=== PATIENT | female | born 1940 | race Caucasian/White ===

== ENCOUNTER 2016-10-26 19:41 | Inpatient (IN) | payer MEDICARE, OTHER ==
[~2016-10-26] VITALS: Ht 162.6 cm; Wt 88.7 kg
[2016-10-26] MEDS ORDERED: SODIUM CHLORIDE 0.9% 1,000 ML ONE (21:05)
[2016-10-26] MEDS ORDERED: CEFTRIAXONE 1 GM VIAL ONE (23:57)
[2016-10-26] MEDS ORDERED: SODIUM CHLORIDE 0.9% 100 ML IV ONE (23:57)
[2016-10-27] VITALS (8 sets, daily range): BP systolic 91–142; RESP 16–18; TEMP 97.9–98.5; Ht 162.6 cm; Wt 88.7 kg
[2016-10-27] MEDS ORDERED: ONDANSETRON 4 MG VIAL IV PUSH PRN (00:10)
[2016-10-27] MEDS ORDERED: DEXTROSE 50% SYRINGE 50 ML IV PRN (00:10)
[2016-10-27] MEDS ORDERED: GLUCAGON 1 MG VIAL IM PRN (00:10)
[2016-10-27] MEDS ORDERED: SALINE FLUSH 10 ML FLUSH PRN (08:35)
[2016-10-27] MEDS: CEFTRIAXONE 1 GM in SODIUM CHLORIDE 0.9% 50 ML IV SCH (08:59)
[2016-10-27] MEDS: SODIUM CHLORIDE 0.9% FLUSH BAG 500 ML IV SCH (09:00)
[2016-10-27] MEDS: SALINE FLUSH 10 ML FLUSH SCH ×2 (09:01→20:30)
[2016-10-27] MEDS: FAMOTIDINE 20 MG INJ IV SCH ×2 (09:03→20:30)
[2016-10-27] MEDS: ACETAMINOPHEN 325 MG TAB PO PRN (09:25)
[2016-10-27] MEDS ORDERED: FAMOTIDINE 20 MG INJ IV SCH (11:05)
[2016-10-27] MEDS: SODIUM CHLOR 0.9% W/KCL 20MEQ 1,000 ML IV SCH ×2 (13:04→21:14)
[2016-10-27] MEDS: LEVEMIR INSULIN SUBQ SCH ×2 (13:22→20:31)
[2016-10-27] MEDS: ENOXAPARIN 30 MG/0.3 ML SYR SUBQ SCH (13:24)
[2016-10-28 04:22] VITALS: BP_SYST 131; RESP 18; TEMP 98.3
[2016-10-28] MEDS: SODIUM CHLORIDE 0.9% FLUSH BAG 500 ML IV SCH (05:51)
[2016-10-28] MEDS: SODIUM CHLOR 0.9% W/KCL 20MEQ 1,000 ML IV SCH ×2 (06:14→18:22)
[2016-10-28 07:16] VITALS: BP_SYST 116; RESP 20; TEMP 98.2
[2016-10-28] MEDS: SALINE FLUSH 10 ML FLUSH SCH ×2 (08:00→20:00)
[2016-10-28] MEDS: CEFTRIAXONE 1 GM in SODIUM CHLORIDE 0.9% 50 ML IV SCH (09:50)
[2016-10-28] MEDS: ENOXAPARIN 30 MG/0.3 ML SYR SUBQ SCH (09:51)
[2016-10-28] MEDS: CLOPIDOGREL 75 MG TAB PO SCH (09:51)
[2016-10-28] MEDS: CHOLECALCIFEROL 1,000 UNITS TAB PO SCH (09:51)
[2016-10-28] MEDS: ALPRAZOLAM 0.25 MG TAB PO SCH ×2 (09:51→21:52)
[2016-10-28] MEDS: SERTRALINE 25 MG TAB PO SCH (09:54)
[2016-10-28] MEDS: ACETAMINOPHEN 325 MG TAB PO PRN (10:01)
[2016-10-28 11:07] VITALS: BP_SYST 124; RESP 16; TEMP 98.8
[2016-10-28 14:50] VITALS: BP_SYST 119; RESP 16; TEMP 98.5
[2016-10-28 19:16] VITALS: BP_SYST 130; RESP 18; TEMP 98.6
[2016-10-28] MEDS: FAMOTIDINE 20 MG TAB PO SCH (21:51)
[2016-10-28 22:30] VITALS: BP_SYST 141; RESP 18; TEMP 98.4
[2016-10-29 04:14] VITALS: BP_SYST 116; RESP 18; TEMP 98.5
[2016-10-29] MEDS: SODIUM CHLORIDE 0.9% FLUSH BAG 500 ML IV SCH (06:00)
[2016-10-29] MEDS: SODIUM CHLOR 0.9% W/KCL 20MEQ 1,000 ML IV SCH ×2 (06:43→21:09)
[2016-10-29] MEDS: SALINE FLUSH 10 ML FLUSH SCH ×2 (08:00→20:00)
[2016-10-29 08:10] VITALS: BP_SYST 132; RESP 18; TEMP 98.5
[2016-10-29] MEDS ORDERED: LOPERAMIDE 2 MG CAPSULE PO PRN (08:50)
[2016-10-29] MEDS ORDERED: ERGOCALCIFEROL 50,000 UNITS (1.25 MG) CAP PO SCH (09:00)
[2016-10-29] MEDS: CEFTRIAXONE 1 GM in SODIUM CHLORIDE 0.9% 50 ML IV SCH (10:07)
[2016-10-29] MEDS: ENOXAPARIN 30 MG/0.3 ML SYR SUBQ SCH (10:07)
[2016-10-29] MEDS: LEVEMIR INSULIN SUBQ SCH (10:08)
[2016-10-29] MEDS: CLOPIDOGREL 75 MG TAB PO SCH (10:13)
[2016-10-29] MEDS: CHOLECALCIFEROL 1,000 UNITS TAB PO SCH (10:13)
[2016-10-29] MEDS: SERTRALINE 25 MG TAB PO SCH (10:13)
[2016-10-29] MEDS: ALPRAZOLAM 0.25 MG TAB PO SCH ×2 (10:17→21:05)
[2016-10-29 10:42] VITALS: BP_SYST 129; RESP 18; TEMP 98.2
[2016-10-29 16:11] VITALS: BP_SYST 126; RESP 18; TEMP 98.4
[2016-10-29 19:12] VITALS: BP_SYST 131; RESP 18; TEMP 98.5
[2016-10-29] MEDS: FAMOTIDINE 20 MG TAB PO SCH (21:05)
[2016-10-29 23:20] VITALS: BP_SYST 121; RESP 18; TEMP 98.8
[2016-10-30 03:06] VITALS: BP_SYST 124; RESP 18; TEMP 98.4
[2016-10-30] MEDS: SODIUM CHLORIDE 0.9% FLUSH BAG 500 ML IV SCH (05:20)
[2016-10-30] MEDS: LEVEMIR INSULIN SUBQ SCH (07:00)
[2016-10-30] MEDS: SALINE FLUSH 10 ML FLUSH SCH ×2 (08:00→20:00)
[2016-10-30 08:07] VITALS: BP_SYST 121; RESP 16; TEMP 98.8
[2016-10-30] MEDS: CLOPIDOGREL 75 MG TAB PO SCH (08:23)
[2016-10-30] MEDS: CHOLECALCIFEROL 1,000 UNITS TAB PO SCH (08:23)
[2016-10-30] MEDS: SERTRALINE 25 MG TAB PO SCH (08:23)
[2016-10-30] MEDS: ENOXAPARIN 30 MG/0.3 ML SYR SUBQ SCH (08:24)
[2016-10-30] MEDS: CEFTRIAXONE 1 GM in SODIUM CHLORIDE 0.9% 50 ML IV SCH (08:32)
[2016-10-30] MEDS: ALPRAZOLAM 0.25 MG TAB PO SCH ×2 (08:37→21:22)
[2016-10-30 11:01] VITALS: BP_SYST 130; RESP 16; TEMP 98.3
[2016-10-30] MEDS: SODIUM CHLOR 0.9% W/KCL 20MEQ 1,000 ML IV SCH (14:54)
[2016-10-30 15:49] VITALS: BP_SYST 106; RESP 16; TEMP 98.7
[2016-10-30 19:14] VITALS: BP_SYST 116; RESP 18; TEMP 98.9
[2016-10-30] MEDS: FAMOTIDINE 20 MG TAB PO SCH (21:22)
[2016-10-30 22:18] VITALS: BP_SYST 124; RESP 20; TEMP 99
[2016-10-31 04:45] VITALS: BP_SYST 127; RESP 18; TEMP 98.6
[2016-10-31] MEDS: SODIUM CHLORIDE 0.9% FLUSH BAG 500 ML IV SCH (05:49)
[2016-10-31] MEDS: SODIUM CHLOR 0.9% W/KCL 20MEQ 1,000 ML IV SCH (05:58)
[2016-10-31 07:18] VITALS: BP_SYST 126; RESP 18; TEMP 98
[2016-10-31] MEDS: LEVEMIR INSULIN SUBQ SCH (09:06)
[2016-10-31] MEDS: CHOLECALCIFEROL 1,000 UNITS TAB PO SCH (09:07)
[2016-10-31] MEDS: CEFTRIAXONE 1 GM in SODIUM CHLORIDE 0.9% 50 ML IV SCH (09:07)
[2016-10-31] MEDS: SERTRALINE 25 MG TAB PO SCH (09:08)
[2016-10-31] MEDS: ALPRAZOLAM 0.25 MG TAB PO SCH (09:08)
[2016-10-31] MEDS: CLOPIDOGREL 75 MG TAB PO SCH (09:08)
[2016-10-31] MEDS: ENOXAPARIN 30 MG/0.3 ML SYR SUBQ SCH (09:09)
[2016-10-31] MEDS: SALINE FLUSH 10 ML FLUSH SCH (09:09)
[2016-10-31 11:00] VITALS: BP_SYST 123; RESP 18; TEMP 98
[2016-10-31 12:09] VITALS: BP_SYST 123; RESP 18; TEMP 98
== END 2016-10-31 14:03 | disposition home or self-care (01) | DRG 690 ==
LOC: ENRESERVTM → ENRESERVDT → ER 19:41 → EMR 23:57 → 4NT 10-27 01:13
PROVIDERS: ADMIT Internal Medicine; ATTEND Internal Medicine
DX: N39.0 Urinary tract infection, site not specified (principal); E11.22 Type 2 diabetes mellitus with diabetic chronic kidney disease; E11.65 Type 2 diabetes mellitus with hyperglycemia; D69.6 Thrombocytopenia, unspecified; G20 Parkinson's disease; N18.3 Chronic kidney disease, stage 3 (moderate); B96.89 Other specified bacterial agents as the cause of diseases classified elsewhere; Z85.07 Personal history of malignant neoplasm of pancreas; Z92.21 Personal history of antineoplastic chemotherapy; Z92.3 Personal history of irradiation; R62.7 Adult failure to thrive; R53.81 Other malaise; E66.01 Morbid (severe) obesity due to excess calories; Z68.33 Body mass index [BMI] 33.0-33.9, adult; R26.9 Unspecified abnormalities of gait and mobility; E78.5 Hyperlipidemia, unspecified; K21.9 Gastro-esophageal reflux disease without esophagitis; F41.9 Anxiety disorder, unspecified; F32.9 Major depressive disorder, single episode, unspecified; I25.10 Atherosclerotic heart disease of native coronary artery without angina pectoris; Z95.5 Presence of coronary angioplasty implant and graft; Z85.3 Personal history of malignant neoplasm of breast; D50.9 Iron deficiency anemia, unspecified; E55.9 Vitamin D deficiency, unspecified; Z90.11 Acquired absence of right breast and nipple; Z96.653 Presence of artificial knee joint, bilateral; Z96.611 Presence of right artificial shoulder joint; Z79.02 Long term (current) use of antithrombotics/antiplatelets; Z79.4 Long term (current) use of insulin
CPT/HCPCS: 36415; 74022; 80048; 80053; 81001; 82140; 82306; 82607; 82746; 82947; 83540; 83605; 83690; 83735; 84439; 84443; 84466; 85007; 85025; 85027; 87040; 87077; 87088; 87186; 93005; 94799; 96361; 96365